=== PATIENT | female | born 1950 | race Caucasian/White ===

== ENCOUNTER → 2016-06-28 12:52 | Outpatient (CLI) | payer BC | END | disposition home or self-care (01) | LOC: D.CT 12:52 | DX: I65.23 Occlusion and stenosis of bilateral carotid arteries (principal) ==

== ENCOUNTER → 2016-08-09 16:50 | Outpatient (CLI) | payer BC | END | disposition home or self-care (01) | LOC: D.MAMMO 10:30 | DX: Z12.31 Encounter for screening mammogram for malignant neoplasm of breast (principal) ==

== ENCOUNTER → 2016-08-19 08:06 | Outpatient (CLI) | payer BC | LOC: D.MAMMO 08:06 | DX: R92.8 Other abnormal and inconclusive findings on diagnostic imaging of breast (principal) ==

== ENCOUNTER → 2017-05-21 08:14 | Outpatient (CLI) | payer MEDICARE, OTHER | END | disposition home or self-care (01) | LOC: D.LAB 08:14 | DX: R19.7 Diarrhea, unspecified (principal) ==

== ENCOUNTER 2017-05-22 11:52 | Emergency (ER) | payer MEDICARE, OTHER ==
[2017-05-22 12:57] LABS: BASOPHILS 0.1 % (0-2); EOSINOPHILS 7.4 % (0-7); HEMATOCRIT 39.5 % (36.0-48.0); HEMOGLOBIN 13.7 g/dL (12-16); IMMATURE GRANULOCYTES 0.6 % (0-5); MCH 30.2 pg (26.0-34.0); MCHC 34.7 g/dL (31.0-37.0); MCV 87.2 fL (80.0-100.0); MEAN PLATELET VOLUME 9.2 fL (7.4-10.4); MONOCYTES 4.1 % (2-11); NEUTROPHILS 71.8 % (40-80); PLATELET COUNT 379 10x3/uL (130-400); RBC 4.53 10x6/uL (4.00-5.40); RDW 13.1 % (11.5-14.5); WBC 17.7 10x3/uL (4.8-10.8)
[2017-05-22 13:18] LABS: APPEARANCE HAZY (CLEAR); BACTERIA MODERATE /hpf (NONE SEEN); BILIRUBIN NEGATIVE (NEGATIVE); COLOR DK YELLOW (YELLOW); EPITHELIAL CELLS 0-5 /hpf (0-5); GLUCOSE NEGATIVE (NEGATIVE); HYALINE CAST 0-5 /lpf (NONE SEEN); KETONE LARGE mg/dL (NEGATIVE); MUCUS <1+ /lpf (NONE SEEN); NITRITE NEGATIVE (NEGATIVE); PROTEIN TRACE mg/dL (NEGATIVE); SPECIFIC GRAVITY 1.025 (1.005-1.020); UROBILINOGEN NORMAL (NORMAL); WAXY CAST 0-5 /lpf (NONE SEEN); WHITE CELLS - URINE 0-5 /hpf (0-5)
[2017-05-22 13:20] LABS: ALBUMIN 3.3 g/dL (3.4-5.0); ALKALINE PHOSPHATASE 166 U/L (46-116); ALT (SGPT) 44 U/L (10-68); BILIRUBIN - TOTAL 0.47 mg/dL (0.2-1.3); CALC OSMOLALITY 273 mosm/kg (275-300); CALCIUM 9.1 mg/dL (8.5-10.1); CARBON DIOXIDE 23.6 mmol/L (21.0-32.0); CHLORIDE - SERUM 100 mmol/L (98-107); CREATININE - SERUM 0.8 mg/dL (0.6-1.3); GLUCOSE 110 mg/dL (74-106); POTASSIUM - SERUM 3.7 mmol/L (3.5-5.1); PROTEIN - SERUM 7.1 g/dL (6.4-8.2); SODIUM 137 mmol/L (136-145); UREA NITROGEN 11 mg/dL (7-18); eGFR NON AFRICAN AMERICAN 76 mL/min (90-120)
== END 2017-05-22 18:36 | disposition home or self-care (01) ==
LOC: D.ER 11:52
PROVIDERS: Emergency Medicine
DX: R19.7 Diarrhea, unspecified (principal); R10.9 Unspecified abdominal pain; I10 Essential (primary) hypertension

== ENCOUNTER → 2017-11-24 08:51 | Outpatient (CLI) | payer MEDICARE, OTHER ==
[2017-11-24 09:23] LABS: ALBUMIN 3.7 g/dL (3.4-5.0); BILIRUBIN - DIRECT 0.08 mg/dL (0.00-0.30); BILIRUBIN - INDIRECT 0.25 mg/dL (0.00-1.00); BILIRUBIN - TOTAL 0.33 mg/dL (0.2-1.3); PROTEIN - SERUM 7.4 g/dL (6.4-8.2)
== END | disposition home or self-care (01) ==
LOC: D.US 08:51
PROVIDERS: Internal Medicine Gastroenterology
DX: K76.0 Fatty (change of) liver, not elsewhere classified (principal)

== ENCOUNTER → 2018-06-03 08:14 | Outpatient (CLI) | payer MEDICARE, OTHER ==
[2018-06-03 09:23] LABS: ALBUMIN 3.7 g/dL (3.4-5.0); BILIRUBIN - DIRECT 0.11 mg/dL (0.00-0.30); BILIRUBIN - INDIRECT 0.34 mg/dL (0.00-1.00); BILIRUBIN - TOTAL 0.45 mg/dL (0.2-1.3); PROTEIN - SERUM 7.3 g/dL (6.4-8.2)
== END | disposition home or self-care (01) ==
LOC: D.US 06-01 09:00 → D.LAB 06-01 09:30 → D.US 08:14
PROVIDERS: ATTEND Internal Medicine Gastroenterology
DX: K76.0 Fatty (change of) liver, not elsewhere classified (principal)

== ENCOUNTER → 2018-12-14 07:35 | Outpatient (CLI) | payer MEDICARE, OTHER ==
[2018-12-14 08:16] LABS: ALBUMIN 3.5 g/dL (3.4-5.0); BILIRUBIN - DIRECT 0.06 mg/dL (0.00-0.30); BILIRUBIN - INDIRECT 0.33 mg/dL (0.00-1.00); BILIRUBIN - TOTAL 0.39 mg/dL (0.2-1.3); PROTEIN - SERUM 7.1 g/dL (6.4-8.2)
== END | disposition home or self-care (01) ==
LOC: D.LAB 12-02 08:00 → D.US 12-02 09:30 → D.LAB 12-04 08:00 → D.US 12-04 09:00 → D.LAB 07:35
PROVIDERS: ATTEND Internal Medicine Gastroenterology
DX: K76.0 Fatty (change of) liver, not elsewhere classified (principal)

== ENCOUNTER 2019-08-30 19:00 | Outpatient (CLI) | payer MEDICARE, OTHER | END 2019-08-30 23:59 | disposition home or self-care (01) | LOC: D.MAMMO 19:00 | PROVIDERS: ATTEND Family Medicine Adult Medicine | DX: Z12.31 Encounter for screening mammogram for malignant neoplasm of breast (principal) ==

== ENCOUNTER → 2019-09-09 20:19 | Outpatient (CLI) | payer MEDICARE, OTHER | END | disposition home or self-care (01) | LOC: D.MAMMO 09-08 20:19 | PROVIDERS: ATTEND Family Medicine Adult Medicine | DX: R92.8 Other abnormal and inconclusive findings on diagnostic imaging of breast (principal) ==

== ENCOUNTER → 2020-07-24 07:13 | Outpatient (CLI) | payer MEDICARE, OTHER | END | disposition home or self-care (01) | LOC: D.US 07:13 | PROVIDERS: ATTEND Internal Medicine Gastroenterology | DX: K76.0 Fatty (change of) liver, not elsewhere classified (principal) ==

== ENCOUNTER 2020-09-19 14:30 | Outpatient (CLI) | payer MEDICARE, OTHER | END 2020-09-19 23:59 | disposition home or self-care (01) | LOC: D.MAMMO 14:30 | PROVIDERS: ATTEND Family Medicine Adult Medicine | DX: Z12.31 Encounter for screening mammogram for malignant neoplasm of breast (principal) ==